=== PATIENT | male | born 1980 | race Asian ===

== ENCOUNTER 2018-11-12 22:18 | Inpatient (IN) | payer OTHER ==
[~2018-11-12] VITALS: Ht 167.6 cm; Wt 99.3 kg
[~2018-11-12 22:18] MED LIST: IBUPROFEN 200200 M1 PO; LISINOPRIL5 MG PO
[2018-11-12 22:22] VITALS: BP 248/141
[2018-11-12] MEDS ORDERED: CARVEDILOL12.5 MG PO (22:30)
[2018-11-12] MEDS ORDERED: HYDRALAZINE 5050 MG PO (22:30)
[2018-11-12 22:49] LABS: HEMATOCRIT 47.2 % (42.0-52.0); HEMOGLOBIN 16.7 gm/dL (14.0-18.0); MCH 30.1 pg (26.0-34.0); MCHC 35.4 g/dL (28.0-37.0); MCV 85.2 fL (80.0-100.0); MPV 7.2 fl. (7.2-11.1); NUCLEATED RBCS 0 /100WBC; PLATELET COUNT* 141 thou/uL (150-400); RBC 5.54 mil/uL (4.50-6.00); RDW-CV 13.5 % (10.5-14.5); WBC 7.9 thou/uL (4.0-11.0)
[2018-11-12 23:13] LABS: CALCIUM 8.6 mg/dL (8.5-10.1); CREATININE 2.5 mg/dL (0.6-1.3); POTASSIUM 3.2 mmol/L (3.5-5.1)
[2018-11-12 23:17] LABS: ALBUMIN 3.9 g/dL (3.4-5.0); TOTAL BILIRUBIN 0.4 mg/dL (<0.1-1.0); TOTAL PROTEIN 8.4 g/dL (6.4-8.2)
[2018-11-13] VITALS (7 sets, daily range): BP systolic 126–184; BP diastolic 57–106
[2018-11-13 00:10] LABS: ABSOLUTE BASOPHILS 0.1 thou/uL (0.0-0.2); ABSOLUTE EOSINOPHILS 0.3 thou/uL (0.0-0.7); ABSOLUTE LYMPHOCYTES 4.3 thou/uL (0.8-5.3); ABSOLUTE MONOCYTES 0.5 thou/uL (0.0-1.2); ABSOLUTE NEUTROPHILS 2.8 thou/uL (1.6-8.1)
[2018-11-13 00:11] LABS: PLATELET ESTIMATE DECREASED
[2018-11-13 00:16] LABS: ATYPICAL LYMPHS 8 %
[2018-11-13 00:22] LABS: URINE BILIRUBIN NEGATIVE (Negative); URINE BLOOD 3+ (Negative); URINE CLARITY CLEAR; URINE COLOR YELLOW; URINE GLUCOSE-RANDOM NEGATIVE (Negative); URINE KETONES NEGATIVE (Negative); URINE LEUKOCYTES-REFLEX NEGATIVE (Negative); URINE NITRITE-REFLEX NEGATIVE (Negative); URINE PROTEIN 3+ (Negative); URINE SPECIFIC GRAVITY 1.025 (1.005-1.030); URINE UROBILINOGEN 0.2 E.U./dl (0.2-1.0)
[2018-11-13 01:13] LABS: HYALINE CASTS 0-3 Few /LPF (None Seen); SQUAMOUS 4-10 Moderate /LPF (0-3)
[2018-11-13 01:14] LABS: URINE WBC-REFLEX None Seen /HPF (0-5)
[2018-11-13 01:15] LABS: BACTERIA-REFLEX 1-9 Few /HPF (None Seen); CRYSTALS None Seen /LPF (None Seen); URINE RBC >20 Many /HPF (0-2)
--- NOTE | 2018-11-13 06:05 | NUR ---
RECEIVED REPORT FROM ED RN. PT TRANSFERRED TO 227. PT A&0X4. VSS. WIND SCIENCE AND PLANNING IN PLACE. ADMISSION HISTORY & PHYSICAL ASSESSMENT COMPLETED AND CHARTED. PT ON RA. PT TRACING SR ON TELE. PT COMPLAINED OF RIGHT LOWER ABDOMINAL PAIN- MEDS GIVEN PER APR. CALL LIGHT WITHIN REACH.
[2018-11-13] MEDS ORDERED: ZESTRIL5 MG PO (07:26)
[2018-11-13 11:20] LABS: MCH 29.9 pg (26.0-34.0); MCHC 34.9 g/dL (28.0-37.0); MCV 85.7 fL (80.0-100.0); RBC 4.79 mil/uL (4.50-6.00); RDW-CV 13.9 % (10.5-14.5); WBC 7.2 thou/uL (4.0-11.0)
[2018-11-13 11:22] LABS: HEMOGLOBIN 14.3 gm/dL (14.0-18.0)
[2018-11-13 11:47] LABS: CREATININE 2.7 mg/dL (0.6-1.3); POTASSIUM 3.6 mmol/L (3.5-5.1); TOTAL BILIRUBIN 0.6 mg/dL (<0.1-1.0); TOTAL PROTEIN 6.6 g/dL (6.4-8.2)
--- NOTE | 2018-11-13 12:06 | NUR ---
MET WITH PT TO DISCUSS HOME SITUATION/DC PLANNING. PT LIVES WITH SPOUSE, WORKS AND IS INDEPENDENT. HE FOLLOWS WITH FAMILY DR JOSE KHAN AND PLANS TO F/U AFTER DC. HE DENIES ANY DC NEEDS. WILL FOLLOW
[2018-11-14] VITALS (7 sets, daily range): BP systolic 147–199; BP diastolic 48–116
[2018-11-14 04:49] LABS: ALBUMIN 2.8 g/dL (3.4-5.0); CALCIUM 7.8 mg/dL (8.5-10.1); CREATININE 2.1 mg/dL (0.6-1.3); PHOSPHORUS* 3.2 mg/dL (2.5-4.9); POTASSIUM 3.1 mmol/L (3.5-5.1)
--- NOTE | 2018-11-14 06:19 | NUR ---
ASSUMED CARE OF PT AFTER REPORT AT 1930. PT A&OX4. VSS. PHYSICAL ASSESSMENT COMPLETED AND CHARTED. PT ON RA. PT TRACING SR ON TELE. PT UP ADLIB TO RESTROOM. PT COMPLAINED OF BILATERAL LEG PAIN-MEDS GIVEN PER APR. PT BP 196/116- DR LEAL INFORMED WITH NEW ORDER. INSTRUCTED ON NPO POST MIDNIGHT FOR RENAL US TODAY. COMMUNICATES UNDERSTANDING. CALL LIGHT WITHIN REACH.
[2018-11-14 11:27] LABS: HEMATOCRIT 40.7 % (42.0-52.0); HEMOGLOBIN 13.9 gm/dL (14.0-18.0); MCH 29.7 pg (26.0-34.0); MCHC 34.2 g/dL (28.0-37.0); MCV 86.9 fL (80.0-100.0); MPV 8.1 fl. (7.2-11.1); RBC 4.68 mil/uL (4.50-6.00); WBC 7.2 thou/uL (4.0-11.0)
[2018-11-14 11:40] LABS: ALBUMIN 2.9 g/dL (3.4-5.0); CALCIUM 7.9 mg/dL (8.5-10.1); CREATININE 2.2 mg/dL (0.6-1.3); POTASSIUM 3.2 mmol/L (3.5-5.1); TOTAL BILIRUBIN 0.5 mg/dL (<0.1-1.0); TOTAL PROTEIN 6.3 g/dL (6.4-8.2)
--- NOTE | 2018-11-14 15:04 | CON ---
[address] [address] CONSULTATION Name: JEREMIE GILL Room: [place] [address] ADM IN [facility].#: [id number] Admission: 11/13/18 Attend Phys: Shelia Moreira MD Discharge: Date of : 82 Report #: [id number] THIS REPORT FOR: //name// CC: FAM physician/PCP Shelia Moreira DATE OF SERVICE: 11/13/2018 NEPHROLOGY CONSULTATION CONSULTING PHYSICIAN: Shelia Moreira MD REASON FOR CONSULTATION: Acute kidney injury. HISTORY OF PRESENT ILLNESS: A 38-year-old gentleman who came in to the Emergency Department with severe right lower quadrant pain. He did not have any hematuria associated with this, but did have some nausea and vomiting. He had a CT scan, which showed some right hydroureteronephrosis without evidence of a stone, but suggestive of possibly a passed kidney stone. He has no previous history of kidney stones. He tells me that a few years ago, he was told he had some reduced kidney function along with high blood pressure, was started on medications. Kidney function improved and he has not had any labs done in over a year, nor has he ever seen a electrician's helper. He does not use any NSAIDs. I am asked to see him because of a rise in his creatinine. His blood pressure was severely elevated on admission 248/141, but this was in the setting of severe pain. REVIEW OF SYSTEMS: Constitutional, psych, heme, eyes, ENT, respiratory, cardiac, GI, , endocrine, all negative except as documented above. PAST MEDICAL HISTORY: History of hypertension. CURRENT MEDICATIONS: Reviewed. SOCIAL HISTORY: Positive history of tobacco use. FAMILY HISTORY: Not pertinent to current clinical case. PHYSICAL EXAMINATION: VITAL SIGNS: Blood pressure is 141/83, pulse 90, respirations 16, temperature 37.1. GENERAL: No acute distress. EYES: Open. EARS: Externally normal. NECK: Supple. CARDIOVASCULAR: [place] [address] CONSULTATION Name: JEREMIE GILL Room: [address] IN [facility]#: [id number] Admission: 11/13/18 Attend Phys: Shelia Moreira MD Discharge: Date of : 82 Report #: [id number] LUNGS: No crackles. ABDOMEN: Soft, nontender. MUSCULOSKELETAL: Nontender. PSYCHIATRIC: Awake, alert. LABORATORY DATA: White cell count 7.2, hemoglobin 14.3, platelets 122. Sodium 137, potassium 3.6, chloride 103, bicarbonate 27, BUN 24, creatinine 2.7, glucose 197, calcium 8, albumin 3. ASSESSMENT: 1. Acute kidney injury with admission creatinine of 2.5, in 2014, creatinine was 1.2, creatinine is 2.7 on 11/13/2018. UA shows presence of rbc's, blood, and protein. CT scan is noted. He was taking lisinopril at home. 2. Hypertension in the setting of severe pain. Blood pressure was 248/141. He does check his blood pressures at home and tells me that it usually runs in 120 systolic. He is on carvedilol, hydralazine, and lisinopril at home. 3. Hematuria. 4. Proteinuria. 5. Right hydroureteronephrosis with possible passed kidney stone. 6. Hypertension. PLAN: 1. Pain is currently resolved now. Blood pressure is much better. Creatinine remains elevated, although recent lab work either inpatient or outpatient is unavailable, so uncertain how much chronic kidney disease he has. 2. We will check a renal ultrasound with Doppler. 3. Check CK. 4. Check serologies including an DUSTY, ANCA, SPEP, serum immunofixation, and free light chain assay as well as an DUSTY. We will also send hepatitis B, C and HIV. 5. Discontinue IV fluids. 6. Discussed the possibility of kidney biopsy with the patient in detail. We will await above workup and determine if kidney biopsy is needed during this inpatient stay. Thank you for requesting my opinion in the care and management of this patient. Case was also discussed with Dr. Jay briefly. <ELECTRONICALLY SIGNED> By: Camron Mandel MD 11/14/18 1504 [id number] Mandel MD /nt
[2018-11-14 16:06] LABS: HEPATITIS B SURFACE AG Negative (Negative); HIV-1/HIV-2 ANTIBODY Non Reactive (Non Reactive)
[2018-11-14 17:07] LABS: IgA 200 mg/dL (90-386); IgG 1190 mg/dL (700-1600); IgM 70 mg/dL (20-172)
--- NOTE | 2018-11-14 19:08 | NUR ---
ASSUMED PT CARE AT 0730. ASSESSMENT COMPLETED CHARTED. ABLE TO MAKE NEEDS KNOWN. UP AD JANET. C/O HEADACHE AND GAVE PRN PAIN MEDICATION CHARTED. PT AT BEDSIDE. WILL CONTINUE TO MONITOR.
[2018-11-15 04:00] VITALS: BP 165/98
[2018-11-15 05:18] LABS: HEMATOCRIT 40.2 % (42.0-52.0); HEMOGLOBIN 13.8 gm/dL (14.0-18.0); MCH 29.9 pg (26.0-34.0); MCHC 34.4 g/dL (28.0-37.0); MCV 87.1 fL (80.0-100.0); MPV 7.2 fl. (7.2-11.1); RBC 4.62 mil/uL (4.50-6.00); RDW-CV 13.9 % (10.5-14.5); WBC 7.7 thou/uL (4.0-11.0)
[2018-11-15 05:45] LABS: ALBUMIN 2.9 g/dL (3.4-5.0); CREATININE 1.8 mg/dL (0.6-1.3); POTASSIUM 3.6 mmol/L (3.5-5.1); TOTAL BILIRUBIN 0.8 mg/dL (<0.1-1.0); TOTAL PROTEIN 6.6 g/dL (6.4-8.2)
--- NOTE | 2018-11-15 05:56 | NUR ---
ASSUMED CARE OF PT AFTER REPORT AT 1930. PT A&OX4. VSS. PHYSICAL ASSESSMENT COMPLETED AND CHARTED. PT ON RA. PT ON MEDSURG STATUS. PT UPADLIB TO RESTROOM. PT COMPLAINED OF HEADACHE AND BILATERAL LEG PAIN- MEDS GIVEN PER APR. PT ABLE TO SLEEP WELL ON BED. CALL LIGHT WITHIN REACH.
[2018-11-15 07:05] VITALS: BP 142/83
[2018-11-15 09:05] VITALS: BP 136/81
--- NOTE | 2018-11-15 10:10 | NUR ---
INITAL ASSESSMENT COMPLETED CHARTED. VSS. PT DENIES N/V/D, SOA. PT C/O HEADACHE 04/23. HOURLY ROUNDING IN PLACE FOR PT SAFETY. CLWR.
[2018-11-15 12:09] LABS: LAMBDA FREE LIGHT CHAINS 37.2 mg/L (5.7-26.3)
[2018-11-15 12:45] VITALS: BP 156/101
[2018-11-15] MEDS ORDERED: NORVASC5 MG PO (13:02)
[2018-11-15] MEDS ORDERED: CARVEDILOL25 MG PO (13:02)
[2018-11-15] MEDS ORDERED: HYDRALAZINE 5050 MG PO (13:02)
[2018-11-15] MEDS ORDERED: CLONIDINE HCL0.2 M2 PO (13:02)
[2018-11-15 14:11] LABS: ANA INTERPRETATION Negative (Negative)
[2018-11-15 14:21] VITALS: BP 156/101
[2018-11-16 19:07] LABS: GLOBULIN TOTAL 2.8 g/dL (2.2-3.9); M-SPIKE Not Observed g/dL (Not Observed)
== END 2018-11-15 15:18 | disposition home or self-care (01) | DRG 683 ==
LOC: M.ERS 22:18 → M.2W 11-13 02:12 → M.TBA-ER 11-13 02:12 → M.2W 11-13 03:30
PROVIDERS: Emergency Medicine; Internal Medicine; Internal Medicine Nephrology; ADMIT Internal Medicine
DX: N17.9 Acute kidney failure, unspecified (principal); N39.0 Urinary tract infection, site not specified; G51.0 Bell's palsy; N13.30 Unspecified hydronephrosis; I16.0 Hypertensive urgency; I10 Essential (primary) hypertension; R31.9 Hematuria, unspecified; R80.9 Proteinuria, unspecified; Z79.899 Other long term (current) drug therapy; Z72.0 Tobacco use